=== PATIENT | male | born 2000 | race American Indian/Alaskan Native ===

== ENCOUNTER 2021-05-07 18:01 | Emergency (ER) | payer SELFPAY ==
[2021-05-07 19:11] LABS: BLOOD UREA NITROGEN,BUN 24 mg/dL (7.0-18.0); CARBON DIOXIDE,CO2 23.8 mmol/L (21.0-32.0); CHLORIDE,CL 103 mmol/L (98-107); GLUCOSE RANDOM 86 mg/dL (74-106); POTASSIUM,K 3.6 mmol/L (3.5-5.1); SODIUM,NA 139 mmol/L (136-148)
== END 2021-05-07 21:05 | disposition home or self-care (01) ==
LOC: MW.ED 18:01
DX: T78.09XA Anaphylactic reaction due to other food products, initial encounter (principal); R07.9 Chest pain, unspecified
CPT/HCPCS: 36415; 71045; 71045-26; 80053; 80305-QW; 84484; 85025; 93005; 99285-25

== ENCOUNTER 2022-06-23 01:49 | Emergency (ER) | payer SELFPAY | END 2022-06-23 03:32 | disposition home or self-care (01) | LOC: MW.ED 01:49 | DX: S02.2XXA Fracture of nasal bones, initial encounter for closed fracture (principal); Y04.0XXA Assault by unarmed brawl or fight, initial encounter; Y92.89 Other specified places as the place of occurrence of the external cause | CPT/HCPCS: 70450; 70450-26; 70486; 70486-26; 99283; 99284 ==